=== PATIENT | female | born 1995 | race Caucasian/White ===

== ENCOUNTER 2017-02-21 20:20 | Inpatient (IN) | payer MEDICARE, OTHER ==
[2017-02-21] MEDS ORDERED: SODIUM CHLORIDE 0.9% 1,000 ML IV STA (21:43)
[2017-02-21] MEDS ORDERED: HYDROmorphone 1 MG/ML 1 ML SYRINGE IVP STA (21:47)
[2017-02-21 22:12] LABS: Basophils # (A) 0.1 k/uL (0-0.2); Basophils % (A) 1 %; CH 30.1; CHCM 33.4; Eosinophils # (A) 0.1 k/uL (0-0.7); Eosinophils % (A) 1 %; HCT 44.6 % (34.0-46.0); HDW 2.16; HGB 14.2 gm/dL (11.4-16.0); Luc # (Auto) 0.22; Luc % (Auto) 1; Lymphocytes # (A) 1.8 k/uL (1.0-4.8); Lymphocytes % (A) 12 %; MCH 28.9 pg (25.0-35.0); MCHC 31.9 g/dL (31.0-37.0); MCV 90.6 fL (80.0-100.0); Mean Platelet Volume 8.8; Monocytes # (A) 0.9 k/uL (0-1.0); Monocytes % (A) 6 %; Neutrophils # (A) 12.2 k/uL (1.3-7.7); Neutrophils % (A) 80 %; RBC 4.93 m/uL (3.80-5.40); RDW 14.3 % (11.5-15.5); WBC 15.2 k/uL (3.8-10.6); WBC (Perox) 15.44
[2017-02-21 22:13] LABS: Appearance,Urine Cloudy (Clear); Bilirubin,Urine Negative (Negative); Glucose,Urine (UA) Negative (Negative); Ketones,Urine 3+ (Negative); Leukocyte Esterase,Urine Trace (Negative); Mucus,Urine Many /hpf; Nitrite,Urine Negative (Negative); Particle Count 11522; Protein,Urine 1+ (Negative); RBC,Urine 2 /hpf (0-5); Specific Gravity,Urine 1.026 (1.001-1.035); Squamous Epithelial Cell,Urine 2 /hpf (0-4); UA Billing (MACRO vs. MICRO) MICRO; WBC,Urine 4 /hpf (0-5)
[2017-02-21 22:20] LABS: ALT 20 U/L (9-52); AST 19 U/L (14-36); Alkaline Phosphatase 100 U/L (38-126); Anion Gap 15 mmol/L; Blood Urea Nitrogen 16 mg/dL (7-17); Calcium 9.2 mg/dL (8.4-10.2); Carbon Dioxide 19 mmol/L (22-30); Chloride 105 mmol/L (98-107); Glucose 73 mg/dL (74-99); Non-African American GFR(MDRD) >60 (>60 ml/min/1.73 sqM); Potassium 3.8 mmol/L (3.5-5.1); Sodium 139 mmol/L (137-145); Total Bilirubin 0.5 mg/dL (0.2-1.3); Total Protein 7.6 g/dL (6.3-8.2)
--- NOTE | 2017-02-21 22:35 | ED ---
Back Pain HPI - General Chief Complaint: Back Pain/Injury Stated Complaint: back pain Time Seen by Provider: 02/21/17 21:21 Source: patient Limitations: no limitations - History of Present Illness Initial Comments: 21-year-old female patient percents to emergency department today with complaints of left flank pain 3 days. Patient states that she has had dull aching pain to the left flank that today turn into a constant sharp stabbing pain. Patient states the pain worsens anytime she takes a deep breath, coughs, or moves. Patient states that she has had a frequent cough with yellowish sputum production for the last couple of months. She states that a couple months ago she did have a kidney stone however the pain went away completely. She states that she has been urinating more frequently. She states that she has had chills all day. She has not been able take her temperature. States she has been taking naproxen which has not helped the pain. Patient denies any recent shortness breath, chest pain, abdominal pain, nausea, vomiting, diarrhea , constipation, numbness, tingling, dizziness, weakness, hematuria, dysuria, urinary urgency, urinary frequency, headache, visual changes, or any other complaints. - Related Data Home Medications Medication Instructions Recorded Confirmed Naproxen Unknown Dose 1 tab PO ONCE 02/21/17 02/21/17 Tramadol Unknown Dose 1 tab PO ONCE 02/21/17 02/21/17 Allergies Allergy/AdvReac Type Severity Reaction Status Date / Time Penicillins Allergy Unknown Verified 02/21/17 21:04 Childhood Review of Systems ROS Statement: Those systems with pertinent positive or pertinent negative responses have been documented in the HPI. ROS Other: All systems not noted in ROS Statement are negative. Past Medical History Additional Past Medical History / Comment(s): insomnia History of Any Multi-Drug Resistant Organisms: None Reported Past Surgical History: No Surgical Hx Reported Past Psychological History: ADD/ADHD, Bipolar, Depression Smoking Status: Current every day smoker Past Alcohol Use History: None Reported Past Drug Use History: Marijuana - Past Family History Father History Unknown: Yes Additional Family Medical History / Comment(s): adopted Mother History Unknown: Yes Additional Family Medical History / Comment(s): adopted General Exam Limitations: no limitations General appearance: alert, in no apparent distress, other (Vital signs upon presentation were temperature 98.8, pulse 120, respirations 18, blood pressure 115/60, pulse ox 100% on room air.) Eye exam: Present: normal appearance, PERRL, EOMI. Absent: scleral icterus, conjunctival injection, periorbital swelling ENT exam: Present: normal exam, normal oropharynx, mucous membranes moist Neck exam: Present: normal inspection. Absent: tenderness, meningismus, lymphadenopathy Respiratory exam: Present: normal lung sounds bilaterally. Absent: respiratory distress, wheezes, rales, rhonchi, stridor Cardiovascular Exam: Present: regular rate, normal rhythm, normal heart sounds. Absent: systolic murmur, diastolic murmur, rubs, gallop, clicks GI/Abdominal exam: Present: soft, normal bowel sounds. Absent: distended, tenderness, guarding, rebound, rigid Back exam: Present: normal inspection, CVA tenderness (L) (Severe). Absent: CVA tenderness (R) Neurological exam: Present: alert, oriented X3, CN II-XII intact Psychiatric exam: Present: normal affect, normal mood Skin exam: Present: warm, dry, intact, normal color. Absent: rash Course Vital Signs 02/21/17 02/21/17 02/22/17 20:32 21:45 00:07 Temperature 98.8 F 99.8 F H 99.0 F Pulse Rate 120 H Respiratory 18 18 Rate Blood Pressure 115/60 O2 Sat by Pulse 100 99 Oximetry 02/22/17 01:09 Temperature 98.9 F Pulse Rate 107 H Respiratory 19 Rate Blood Pressure 113/56 O2 Sat by Pulse 97 Oximetry Medical Decision Making - Medical Decision Making 21-year-old female patient presents to the emergency department today for evaluation of left flank pain. Labs did show an elevated white blood cell count of 15.2 with a neutrophil count of 12.2. Urine was cloudy with 1+ protein , 3+ ketones, trace leuk esterase, and many mucus, urine has been sent for culture. Incidentally patient's urine drug screen was positive for amphetamines and methamphetamines as well as marijuana. Physical exam did show some exquisite tenderness to the left CVA. Lungs are clear. CT of the abdomen and pelvis did show groundglass opacity in the right lower lobe, two-view x-ray of the chest was obtained to correlate. Did show a patchy right lower lobe infiltrate consistent with pneumonia. Upon reexamination patient states that she is not feeling much better. As she does have left CVA tenderness, chills, and urinary frequency she will be treated for pyelonephritis as well as the documented pneumonia. She was started on Levaquin as she does have an ALLERGY to penicillin. She'll be admitted to the hospital under the care of Dr. Valiente. - Lab Data Result diagrams: 02/21/17 21:24 02/21/17 21:24 Lab Results 02/21/17 02/21/17 02/21/17 Range/Units 21:24 21:24 21:53 WBC 15.2 H (3.8-10.6) k/uL RBC 4.93 (3.80-5.40) m/uL Hgb 14.2 (11.4-16.0) gm/dL Hct 44.6 (34.0-46.0) % MCV 90.6 (80.0-100.0) fL MCH 28.9 (25.0-35.0) pg MCHC 31.9 (31.0-37.0) g/dL RDW 14.3 (11.5-15.5) % Plt Count 268 (150-450) k/uL Neutrophils % 80 % Lymphocytes % 12 % Monocytes % 6 % Eosinophils % 1 % Basophils % 1 % Neutrophils # 12.2 H (1.3-7.7) k/uL Lymphocytes # 1.8 (1.0-4.8) k/uL Monocytes # 0.9 (0-1.0) k/uL Eosinophils # 0.1 (0-0.7) k/uL Basophils # 0.1 (0-0.2) k/uL Sodium 139 (137-145) mmol/L Potassium 3.8 (3.5-5.1) mmol/L Chloride 105 (98-107) mmol/L Carbon Dioxide 19 L (22-30) mmol/L Anion Gap 15 mmol/L BUN 16 (7-17) mg/dL Creatinine 0.67 (0.52-1.04) mg/dL Est GFR (MDRD) Af Amer >60 (>60 ml/min/1.73 sqM) Est GFR (MDRD) Non-Af >60 (>60 ml/min/1.73 sqM) Glucose 73 L (74-99) mg/dL Calcium 9.2 (8.4-10.2) mg/dL Total Bilirubin 0.5 (0.2-1.3) mg/dL AST 19 (14-36) U/L ALT 20 (9-52) U/L Alkaline Phosphatase 100 (38-126) U/L Total Protein 7.6 (6.3-8.2) g/dL Albumin 4.2 (3.5-5.0) g/dL Urine Color Urine Appearance (Clear) Urine pH (5.0-8.0) Ur Specific Meigs (1.001-1.035) Urine Protein (Negative) Urine Glucose (UA) (Negative) Urine Ketones (Negative) Urine Blood (Negative) Urine Nitrite (Negative) Urine Bilirubin (Negative) Urine Urobilinogen (<2.0) mg/dL Ur Leukocyte Esterase (Negative) Urine RBC (0-5) /hpf Urine WBC (0-5) /hpf Ur Squamous Epith Cells (0-4) /hpf Urine Mucus (None) /hpf Urine HCG, Qual Not Detected (Not Detectd) Urine Opiates Screen (NotDetected) Ur Oxycodone Screen (NotDetected) Urine Methadone Screen (NotDetected) Ur Propoxyphene Screen (NotDetected) Ur Barbiturates Screen (NotDetected) U Tricyclic Antidepress (NotDetected) Ur Phencyclidine Scrn (NotDetected) Ur Amphetamines Screen (NotDetected) U Methamphetamines Scrn (NotDetected) U Benzodiazepines Scrn (NotDetected) Urine Cocaine Screen (NotDetected) U Marijuana (THC) Screen (NotDetected) 02/21/17 02/21/17 Range/Units 21:53 21:53 WBC (3.8-10.6) k/uL RBC (3.80-5.40) m/uL Hgb (11.4-16.0) gm/dL Hct (34.0-46.0) % MCV (80.0-100.0) fL MCH (25.0-35.0) pg MCHC (31.0-37.0) g/dL RDW (11.5-15.5) % Plt Count (150-450) k/uL Neutrophils % % Lymphocytes % % Monocytes % % Eosinophils % % Basophils % % Neutrophils # (1.3-7.7) k/uL Lymphocytes # (1.0-4.8) k/uL Monocytes # (0-1.0) k/uL Eosinophils # (0-0.7) k/uL Basophils # (0-0.2) k/uL Sodium (137-145) mmol/L Potassium (3.5-5.1) mmol/L Chloride (98-107) mmol/L Carbon Dioxide (22-30) mmol/L Anion Gap mmol/L BUN (7-17) mg/dL Creatinine (0.52-1.04) mg/dL Est GFR (MDRD) Af Amer (>60 ml/min/1.73 sqM) Est GFR (MDRD) Non-Af (>60 ml/min/1.73 sqM) Glucose (74-99) mg/dL Calcium (8.4-10.2) mg/dL Total Bilirubin (0.2-1.3) mg/dL AST (14-36) U/L ALT (9-52) U/L Alkaline Phosphatase (38-126) U/L Total Protein (6.3-8.2) g/dL Albumin (3.5-5.0) g/dL Urine Color Yellow Urine Appearance Cloudy H (Clear) Urine pH 6.0 (5.0-8.0) Ur Specific Meigs 1.026 (1.001-1.035) Urine Protein 1+ H (Negative) Urine Glucose (UA) Negative (Negative) Urine Ketones 3+ H (Negative) Urine Blood Negative (Negative) Urine Nitrite Negative (Negative) Urine Bilirubin Negative (Negative) Urine Urobilinogen 3.0 (<2.0) mg/dL Ur Leukocyte Esterase Trace H (Negative) Urine RBC 2 (0-5) /hpf Urine WBC 4 (0-5) /hpf Ur Squamous Epith Cells 2 (0-4) /hpf Urine Mucus Many H (None) /hpf Urine HCG, Qual (Not Detectd) Urine Opiates Screen Not Detected (NotDetected) Ur Oxycodone Screen Not Detected (NotDetected) Urine Methadone Screen Not Detected (NotDetected) Ur Propoxyphene Screen Not Detected (NotDetected) Ur Barbiturates Screen Not Detected (NotDetected) U Tricyclic Antidepress Not Detected (NotDetected) Ur Phencyclidine Scrn Not Detected (NotDetected) Ur Amphetamines Screen Detected H (NotDetected) U Methamphetamines Scrn Detected H (NotDetected) U Benzodiazepines Scrn Not Detected (NotDetected) Urine Cocaine Screen Not Detected (NotDetected) U Marijuana (THC) Screen Detected H (NotDetected) - Radiology Data Radiology results: report reviewed, image reviewed CT of the abdomen and pelvis shows hepatomegaly, no focal lesion, spleen shows no focal lesion, gallbladder shows no stones or biliary dilatated and. He grew shows no mass. Do not twin show no mass. Kidneys are normal with no hydronephrosis or stone. No mass. Bowel shows normal appendix. No bowel structure or inflammation. Urinary bladder shows mild prominence of the bladder wall male accentuated by underdistention. Reproductive organs are unremarkable. Muscle show no mass. Subcutaneous tissues are unremarkable. Peritoneal's patient is no free fluid. Lymph node showed mildly prominent mesenteric lymph nodes are nonspecific but may be reactive. Vessels show no aneurysm. Bones show Schmorl's no deformities in the superior endplate of L2 and L1. No acute fracture or bony lesion. Lung bases show patchy consolidation , nodular densities, and groundglass opacities in the visualized portions of the right lower lobe, compatible with pneumonia. Trace right pleural effusion. Impression by Dr. Wang shows patchy consolidation, nodular density, and ground glass opacity in the visualized right lower lobe is compatible with pneumonia. Trace right pleural effusion. No renal or ureteral stones identified. No hydronephrosis in either kidney. Mild prominence of the bladder wall may be accentuated by under suspension. Please correlate with urinalysis concern for cystitis. Two-view x-ray of the chest shows patchy infiltrate in the right lower lobe, compatible pneumonia. No significant pleural effusion or pneumothorax did about this exam. Heart and mediastinum are normal with no cardiomegaly. Soft tissues are unremarkable. Bones show no acute fracture. Dextroconvex scoliosis. Impression by Dr. Wang shows patchy infiltrate in the right lower lobe, compatible with pneumonia. Disposition Clinical Impression: Right lower lobe pneumonia, Pyelonephritis Disposition: ADMITTED IP TO THIS HOSP Condition: Fair Decision to Admit Reason: Admit from EC Decision Date: 02/22/17 Decision Time: 00:53
--- NOTE | 2017-02-21 23:42 | CT ---
EXAM: CT Abdomen and Pelvis Without Intravenous Contrast CLINICAL HISTORY: Reason: Left-sided flank pain TECHNIQUE: Axial computed tomography images of the abdomen and pelvis without intravenous contrast. CTDI is 5.10 mGy and DLP is 254.10 mGy-cm. This CT exam was performed using one or more of the following dose reduction techniques: automated exposure control, adjustment of the mA and/or kV according to patient size, and/or use of iterative reconstruction technique. COMPARISON: None FINDINGS: Evaluation of solid organs somewhat limited without IV contrast. Liver: Hepatomegaly. No focal lesion. Spleen: No focal lesion. Gallbladder: No stones or biliary dilatation. Pancreas: No mass. Adrenal glands: No mass. Kidneys: Normal. No hydronephrosis or stone. No mass. Bowel: Normal appendix. No bowel obstruction or inflammation. Urinary bladder: Mild prominence of bladder wall may be accentuated by underdistention. Reproductive organs: Unremarkable. Muscles: No mass. Subcutaneous tissues: Unremarkable. Peritoneal space: No free fluid. Lymph nodes: Mildly prominent mesenteric lymph nodes are nonspecific but may be reactive. Vessels: No aneurysm. Bones: Schmorl's node deformities in the superior endplate of L2 and L1. No acute fracture or bony lesion. Lung bases: Patchy consolidation, nodular densities, and groundglass opacities in the visualized portions of the right lower lobe, compatible with pneumonia. Trace right pleural effusion. IMPRESSION: 1. Patchy consolidation, nodular density, and groundglass opacity in the visualized right lower lobe is compatible with pneumonia. Trace right pleural effusion. 2. No renal or ureteral stone identified. No hydronephrosis in either kidney. 3. Mild prominence of the bladder wall may be accentuated by underdistention. Please correlate with urinalysis if concerned for cystitis.
--- NOTE | 2017-02-22 00:39 | XR ---
EXAM: XR Chest, 2 Views CLINICAL HISTORY: Reason: Pain TECHNIQUE: Frontal and lateral views of the chest. COMPARISON: None FINDINGS: Lungs/pleura: Patchy infiltrate in the right lower lobe, compatible with pneumonia. No significant pleural effusion or pneumothorax identified on this exam. Heart/mediastinum: Normal. No cardiomegaly. Soft tissues: Unremarkable. Bones: No acute fracture. Dextroconvex scoliosis. IMPRESSION: Patchy infiltrate in the right lower lobe, compatible with pneumonia.
[2017-02-22] MEDS ORDERED: LEVOFLOXACIN 500MG-D5W PMX 500 MG in DEXTROSE/WATER 1 100ML.BAG IVPB STA (00:49)
[2017-02-22] MEDS ORDERED: ACETAMINOPHEN TAB 325 MG TAB PO PRN (00:53)
[2017-02-22] MEDS ORDERED: IBUPROFEN 400 MG TAB PO PRN (00:53)
[2017-02-22] MEDS ORDERED: NALOXONE 0.4 MG/ML 1 ML VIAL IV PRN (00:53)
[2017-02-22] MEDS: SODIUM CHLORIDE 0.9% 1,000 ML IV SCH ×2 (01:11→15:01)
[2017-02-22 08:04] VITALS: RESP 16
--- NOTE | 2017-02-22 12:39 | P.HPIM ---
History of Present Illness 21-year-old female came in with the left flank pain going on for about 4 days sharp stabbing nature, patient denied any weakness attending numbness in bilateral lower limbs. Patient has dull aching 7 x 10 in pain. Patient had a CT of the abdomen which did not show any significant abnormality patient does not appear to have any symptoms consistent with pulmonary embolism patient's urease essentially not significant for any infection. Although CAT scan of the abdomen showed some atelectasis and possible early status of pneumonia because of which I'm discharging her on a week of levofloxacin although patient has been normal cough with yellowish sputum production denied any shortness of breath. Patient does smoke counseling regarding that was provided. Patient will be discharged on a week of levofloxacin. Review of Systems REVIEW OF SYSTEMS: CONSTITUTIONAL: No fever, no malaise, no fatigue. HEENT: No recent visual problems or hearing problems. Denied any sore throat. CARDIOVASCULAR: No chest pain, orthopnea, PND, no palpitations, no syncope. PULMONARY: No shortness of breath, no cough, no hemoptysis. GASTROINTESTINAL: No diarrhea, no nausea, no vomiting, no abdominal pain. Normoactive bowel sounds. NEUROLOGICAL: No headaches, no weakness, no numbness. HEMATOLOGICAL: Denies any bleeding or petechiae. GENITOURINARY: Denies any burning micturition, frequency, or urgency. MUSCULOSKELETAL/RHEUMATOLOGICAL: As mentioned in HPI ENDOCRINE: Denies any polyuria or polydipsia. The rest of the 14-point review of systems is negative. Past Medical History Past Medical History: Musculoskeletal Disorder Additional Past Medical History / Comment(s): insomnia History of Any Multi-Drug Resistant Organisms: None Reported Past Surgical History: No Surgical Hx Reported Past Psychological History: ADD/ADHD, Bipolar, Depression Smoking Status: Current every day smoker Past Alcohol Use History: None Reported Past Drug Use History: Marijuana - Past Family History Father History Unknown: Yes Additional Family Medical History / Comment(s): adopted Mother History Unknown: Yes Additional Family Medical History / Comment(s): adopted Medications and Allergies Home Medications Medication Instructions Recorded Confirmed Type Naproxen Unknown Dose 1 tab PO ONCE 02/21/17 02/21/17 History Tramadol Unknown Dose 1 tab PO ONCE 02/21/17 02/21/17 History Albuterol Inhaler [Ventolin Hfa 1 - 2 puff INHALATION Q6HR PRN #1 02/22/17 Rx Inhaler] inhaler Levofloxacin [Levaquin] 500 mg PO DAILY #7 tab 02/22/17 Rx Allergies Allergy/AdvReac Type Severity Reaction Status Date / Time Penicillins Allergy Unknown Verified 02/21/17 21:04 Childhood Physical Exam Vitals: Vital Signs Temp Pulse Pulse Resp BP BP Pulse Ox 02/22/17 08:04 98.4 F 98 16 95/47 97 02/22/17 02:15 98.7 F 106 H 20 123/73 99 02/22/17 01:09 98.9 F 107 H 19 113/56 97 02/22/17 00:07 99.0 F 18 99 02/21/17 21:45 99.8 F H 02/21/17 20:32 98.8 F 120 H 18 115/60 100 Intake and Output 02/21/17 02/22/17 02/22/17 22:59 06:59 14:59 Intake Total 200 Balance 200 Intake: Oral 200 Other: # Voids 1 Weight 56.699 kg PHYSICAL EXAMINATION: GENERAL: The patient is alert and oriented x3, not in any acute distress. Well developed, well nourished. HEENT: Pupils are round and equally reacting to light. EOMI. No scleral icterus. No conjunctival pallor. Normocephalic, atraumatic. No pharyngeal erythema. No thyromegaly. CARDIOVASCULAR: S1 and S2 present. No murmurs, rubs, or gallops. PULMONARY: Chest is clear to auscultation, no wheezing or crackles. ABDOMEN: Soft, nontender, nondistended, normoactive bowel sounds. No palpable organomegaly. MUSCULOSKELETAL: No joint swelling or deformity. I'll the left flank tenderness in the paraspinal area probably due to paraspinal muscle spasm EXTREMITIES: No cyanosis, clubbing, or pedal edema. NEUROLOGICAL: Gross neurological examination did not reveal any focal deficits. SKIN: No rashes. Results CBC & Chem 7: 02/21/17 21:24 02/21/17 21:24 Labs: Abnormal Lab Results - Last 24 Hours (Table) 02/21/17 02/21/17 02/21/17 Range/Units 21:24 21:24 21:53 WBC 15.2 H (3.8-10.6) k/uL Neutrophils # 12.2 H (1.3-7.7) k/uL Carbon Dioxide 19 L (22-30) mmol/L Glucose 73 L (74-99) mg/dL Plasma Lactic Acid Alli (0.7-2.0) mmol/L Urine Appearance Cloudy H (Clear) Urine Protein 1+ H (Negative) Urine Ketones 3+ H (Negative) Ur Leukocyte Esterase Trace H (Negative) Urine Mucus Many H (None) /hpf Ur Amphetamines Screen (NotDetected) U Methamphetamines Scrn (NotDetected) U Marijuana (THC) Screen (NotDetected) 02/21/17 02/22/17 Range/Units 21:53 01:47 WBC (3.8-10.6) k/uL Neutrophils # (1.3-7.7) k/uL Carbon Dioxide (22-30) mmol/L Glucose (74-99) mg/dL Plasma Lactic Acid Alli 0.6 L (0.7-2.0) mmol/L Urine Appearance (Clear) Urine Protein (Negative) Urine Ketones (Negative) Ur Leukocyte Esterase (Negative) Urine Mucus (None) /hpf Ur Amphetamines Screen Detected H (NotDetected) U Methamphetamines Scrn Detected H (NotDetected) U Marijuana (THC) Screen Detected H (NotDetected) Microbiology - Last 24 Hours (Table) 02/21/17 21:53 Urine Culture - Preliminary Urine,Clean Catch Thrombosis Risk Factor Assmnt - Choose All That Apply Any of the Below Risk Factors Present?: No Other Risk Factors: No Other congenital or acquired thrombophilia - If yes, enter type in comment: No Thrombosis Risk Factor Assessment Level: Very Low Risk Assessment and Plan Plan: #1 left flank pain: Probably musculoskeletal from paraspinal muscle spasm patient was asked to use hot pack and patient is already on nonsteroidal anti- inflammatories which she was asked to continue. #2 possibility of come in today quite pneumonia cannot be ruled out because of which am discharging her on a week of levofloxacin. #3 nicotine abuse counseling was provided
--- NOTE | 2017-02-22 12:40 | P.DS ---
Providers Date of admission: 02/22/17 01:28 Attending physician: Glo Valiente Primary care physician: Stated None Hospital Course: Please refer to HPI Patient Condition at Discharge: Fair Plan - Discharge Summary New Discharge Prescriptions: New Albuterol Inhaler [Ventolin Hfa Inhaler] 1 - 2 puff INHALATION Q6HR PRN #1 inhaler PRN Reason: Shortness Of Breath Or Wheezing Levofloxacin [Levaquin] 500 mg PO DAILY #7 tab No Action Tramadol Unknown Dose 1 tab PO ONCE Naproxen Unknown Dose 1 tab PO ONCE Discharge Medication List Naproxen Unknown Dose 1 tab PO ONCE 02/21/17 [History] Tramadol Unknown Dose 1 tab PO ONCE 02/21/17 [History] Albuterol Inhaler [Ventolin Hfa Inhaler] 1 - 2 puff INHALATION Q6HR PRN #1 inhaler 02/22/17 [Rx] Levofloxacin [Levaquin] 500 mg PO DAILY #7 tab 02/22/17 [Rx] Follow up Appointment(s)/Referral(s): None,Stated [Primary Care Provider] - 1-2 days
[2017-02-22 14:48] VITALS: BP 105/56; PULSE 82; TEMP 97.9
== END 2017-02-22 15:08 | disposition home or self-care (01) | DRG 689 ==
LOC: EC 20:20 → 4MS4W 02-22 01:28
PROVIDERS: ADMIT Internal Medicine; ATTEND Internal Medicine
DX: N12 Tubulo-interstitial nephritis, not specified as acute or chronic (principal); J18.9 Pneumonia, unspecified organism; F17.200 Nicotine dependence, unspecified, uncomplicated; F32.9 Major depressive disorder, single episode, unspecified; F90.9 Attention-deficit hyperactivity disorder, unspecified type; Z79.899 Other long term (current) drug therapy; Z79.1 Long term (current) use of non-steroidal anti-inflammatories (NSAID); G47.00 Insomnia, unspecified; Z87.442 Personal history of urinary calculi; Z88.0 Allergy status to penicillin
CPT/HCPCS: 36415; 71020; 74176; 80053; 80306; 81001; 81025; 83605; 85025; 87040; 87077; 87086; 87186; 96361; 96365; 96375; 99285